=== PATIENT | male | born 1955 | race Caucasian/White ===

== ENCOUNTER 2018-04-07 14:39 | Emergency (ER) | payer BC ==
[2018-04-07] MEDS ORDERED: Sodium Chloride 0.9% 1,000 ML ONE (15:43)
[2018-04-07] MEDS ORDERED: Sodium Chloride 0.9% 1,000 ML IV ONE (15:43)
--- NOTE | 2018-04-07 15:46 | EDM.PDOC ---
ED HPI GENERAL MEDICAL PROBLEM - General Chief Complaint: Syncope Stated Complaint: PASSED OUT Time Seen by Provider: 04/07/18 14:45 Source of Information: Reports: Patient History Limitations: Reports: No Limitations - History of Present Illness INITIAL COMMENTS - FREE TEXT/NARRATIVE: 8-year-old male presents emergency room today after experiencing a syncopal episode in the bathroom while visiting at at his girlfriend's place and [place]. He's had similar episodes of this in the past. He did feel slightly lightheaded before going the bathroom this morning. He denies any fever chills nausea vomiting shortness of breath chest pain headaches or dizziness. He denies any vertigo. He's had prior carotid surgery on the right by Dr. Krueger. Leads this was done in 2013. He is also been diagnosed with peripheral artery disease in both of his legs. He does take a baby aspirin when necessary gout medication when necessary potassium replacement when necessary and niacin when necessary. He does not have a primary care provider but has seen someone in [place] in the past. He is a pack and a half day smoker for the last 40+ years. He denies elevated or low blood sugars. He feels the symptoms are very mild this time. He does not drink a lot of water but does drink caffeinated beverages such as Mountain Dew. Onset: Today, Sudden Onset Date: 04/07/18 Duration: Minutes: Location: Reports: Generalized Severity: Mild Improves with: Reports: Rest Worsens with: Reports: None Associated Symptoms: Reports: Syncope. 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: Aspirin - Related Data Allergies Allergy/AdvReac Type Severity Reaction Status Date / Time No Known Drug Allergies Allergy Unknown none Verified 04/07/18 15:27 Home Meds: Home Meds Hydrocodone/Acetaminophen [Hydrocodon-Acetaminophen 5-325] 1 each PO Q6HR PRN # 4 tablet 11/06/15 [Rx] Naproxen [IJP: Naproxen] 500 mg PO BID PRN #30 tab 11/06/15 [Rx] Past Medical History - Past Health History Medical/Surgical History: Denies Medical/Surgical History Cardiovascular History: Reports: Other (See Below) (PAD Carotid stenosis) Endocrine/Metabolic History: Reports: Other (See Below) (gout) Social & Family History - Tobacco Use Smoking Status *Q: Heavy Tobacco Smoker Tobacco Use Within Last Twelve Months: Cigarettes Years of Tobacco use: 43 Packs/Tins Daily: 1.5 - Living Situation & Occupation Occupation: Employed ED ROS GENERAL - Review of Systems Review Of Systems: See Below Constitutional: Reports: No Symptoms HEENT: Denies: Eye Pain, Nosebleed, Vertigo, Vision Change Respiratory: Denies: Shortness of Breath Cardiovascular: Reports: Lightheadedness, Syncope. Denies: Chest Pain, Blood Pressure Problem, Dyspnea on Exertion Endocrine: Reports: No Symptoms GI/Abdominal: Denies: Abdominal Pain, Bloody Stool, Diarrhea, Nausea, Vomiting : Reports: No Symptoms Musculoskeletal: Denies: Neck Pain, Shoulder Pain, Back Pain Skin: Reports: No Symptoms Neurological: Reports: Syncope. Denies: Confusion, Headache, Numbness, Paresthesia, Seizure, Trouble Speaking, Weakness, Change in Speech, Gait Disturbance Psychiatric: Reports: No Symptoms Hematologic/Lymphatic: Reports: No Symptoms Immunologic: Reports: No Symptoms - Physical Exam Exam: See Below Exam Limited By: No Limitations General Appearance: Alert, WD/WN, No Apparent Distress Eye Exam: Bilateral Eye: EOMI, PERRL Ears: Normal External Exam, Normal Canal Nose: Normal Inspection Throat/Mouth: Normal Inspection, Normal Lips, Normal Oropharynx, Normal Voice Head Exam: Atraumatic, Normocephalic Neck: Normal Inspection, Supple, Non-Tender, Full Range of Motion, Other (Well- healed incision from prior right carotid surgery). No: Carotid Bruit, Lymphadenopathy (L), Lymphadenopathy (R) Respiratory/Chest: No Respiratory Distress, Lungs Clear, No Accessory Muscle Use , Chest Non-Tender, Decreased Breath Sounds Cardiovascular: Regular Rate, Rhythm, No JVD, Other (Carotid pulses are 1+, radial pulses 2+, dorsal pedis and posterior tibialis pulses not palpable bilaterally. No abdominal bruit. No pulsations to palpation) GI/Abdominal: Normal Bowel Sounds, Soft, Non-Tender, No Abnormal Bruit Neuro Exam (Abbreviated): Alert, Oriented, CN II-XII Intact, Normal Cognition, No Motor/Sensory Deficits Back Exam: Normal Inspection Extremities: Normal Inspection, Normal Range of Motion, Slow Capillary Refill Psychiatric: Normal Affect, Normal Mood Skin Exam: Warm, Dry, Intact, Normal Color, No Rash EKG INTERPRETATION EKG Date: 04/07/18 Time: 15:20 Rhythm: NSR Rate (Beats/Min): 74 [place]: Normal P-Wave: Present QRS: Normal ST-T: Normal QT: Normal Comparison: NA - No Prior EKG EKG Interpretation Comments: Normal sinus rhythm Septal infarct age undetermined Course - Vital Signs Last Recorded V/S: Last Vital Signs Temp 98 F 04/07/18 15:14 Pulse 77 04/07/18 15:14 Resp 24 H 04/07/18 15:14 BP 128/78 04/07/18 15:14 Pulse Ox 94 L 04/07/18 15:14 - Orders/Labs/Meds Orders: Active Orders 24 hr Category Date Time Status CXR [Chest 2V] [CR] Stat Exams 04/07/18 16:11 Ordered Labs: Laboratory Tests 04/07/18 04/07/18 04/07/18 Range/Units 15:20 15:20 15:30 WBC 15.59 H (5.00-10.00) 10^3/uL RBC 5.44 (4.50-6.00) 10^6/uL Hgb 16.1 (13.0-17.0) g/dL Hct 46.5 (40.0-52.0) % MCV 85.5 (82.0-92.0) fL MCH 29.6 (27.0-31.0) pg MCHC 34.6 (32.0-36.0) g/dL RDW 13.7 (11.5-14.5) % Plt Count 266 (150-400) 10^3/uL MPV 10.2 (7.4-10.4) fL Immature Gran % (Auto) 0.3 (0.0-5.0) % Neut % (Auto) 81.4 H (50.0-70.0) % Lymph % (Auto) 12.3 L (20.0-40.0) % [place] % (Auto) 5.5 (2.0-8.0) % Eos % (Auto) 0.3 L (1.0-3.0) % Baso % (Auto) 0.2 (0.0-1.0) % Immature Gran # (Auto) 0.05 (0.00-0.50) 10^3/uL Neut # (Auto) 12.69 H (2.50-7.00) 10^3/uL Lymph # (Auto) 1.91 (1.00-4.00) 10^3/uL [place] # (Auto) 0.86 H (0.10-0.80) 10^3/uL Eos # (Auto) 0.05 L (0.10-0.30) 10^3/uL Baso # (Auto) 0.03 (0.00-0.10) 10^3/uL Sodium 138 (136-145) mmol/L Potassium 4.1 (3.3-5.3) mmol/L Chloride 104 (98-115) mmol/L Carbon Dioxide 22.3 (21.0-32.0) mmol/L Anion Gap 15.8 H (5-15) mmol/L BUN 10 (6-25) mg/dL Creatinine 0.85 (0.51-1.17) mg/dL Est Cr Clr Drug Dosing 83.40 mL/min Estimated GFR (MDRD) > 60 mL/min Glucose 100 mg/dL Calcium 8.2 L (8.7-10.3) mg/dL Troponin I < 0.04 (0.00-0.070) ng/mL Specimen Type Urinblad Urine Color Yellow (YELLOW) Urine Appearance Clear (CLEAR) Urine pH 5.5 (5.0-9.0) Ur Specific [place] <= 1.005 (1.005-1.030) Urine Protein Negative (NEGATIVE) mg/dL Urine Glucose (UA) Negative (NEGATIVE) mg/dL Urine Ketones Negative (NEGATIVE) mg/dL Urine Occult Blood Trace-intact H (NEGATIVE) Urine Nitrite Negative (NEGATIVE) Urine Bilirubin Negative (NEGATIVE) Urine Urobilinogen 0.2 (0.2-1.0) E.U./dL Ur Leukocyte Esterase Negative (NEGATIVE) Urine RBC Not seen /HPF Urine WBC 0-5 /HPF Ur Epithelial Cells Rare /LPF Urine Bacteria Not seen (NONE TO FEW) /HPF Meds: Medications Discontinued Medications Generic Name Dose Route Start Last Admin Trade Name Freq PRN Reason Stop Dose Admin Sodium Chloride Confirm 04/07/18 15:43 04/07/18 15:44 Normal Saline Administered 04/07/18 15:44 999 mls/hr Dose Administration 1,000 mls @ as directed .ROUTE .STK-MED ONE - Radiology Interpretation Free Text/Narrative:: Chest x-ray PA lateral Findings: The lungs are clear The cardiac silhouette is normal Impression: Normal lung x-ray indeterminate exam. Departure - Departure Time of Disposition: 17:45 Disposition: Home, Self-Care 01 Condition: Fair Clinical Impression: Neutrophilic leukocytosis Syncope Qualifiers: Syncope type: unspecified Qualified Code(s): R55 - Syncope and collapse - Discharge Information *PRESCRIPTION DRUG MONITORING PROGRAM REVIEWED*: Yes *COPY OF PRESCRIPTION DRUG MONITORING REPORT IN PATIENT ARIEL: Yes Instructions: Leukocytosis, Syncope, [id number] Referrals: PCP,Not In Area [Primary Care Provider] - Forms: ED Department Discharge - My Orders Last 24 Hours: My Active Orders 04/07/18 16:11 CXR [Chest 2V] [CR] Stat - Assessment/Plan Last 24 Hours: My Active Orders 04/07/18 16:11 CXR [Chest 2V] [CR] Stat Assessment:: Syncopal episode Neutrophilic leukocytosis Plan: 1. Recommended patient follow-up with a primary care provider. Patient states he has no desire for any follow-up as doesn't do any help any way. We did talk with them today about smoking sensation. He declined any help with regards to this as well. 2. I do have concerns that the syncopal episode may be related to some underlying coronary arteries disease he's had a right coronary artery surgery in the past. He's also been diagnosed with a peripheral artery disease. I feel he likely benefit to have further evaluation S with follow-up with this of primary care and probably carotid ultrasound. He has seen a primary care and [place] in the past and I've discussed this both with the patient and his girlfriend. He left on his own discretion today prior to given him discharge papers.
[2018-04-07 16:02] LABS: ANION GAP 15.8 mmol/L (5-15); CHLORIDE,CL 104 mmol/L (98-115); SODIUM,NA 138 mmol/L (136-145)
[2018-04-07 17:26] VITALS: BP 126/63
== END 2018-04-07 17:35 | disposition home or self-care (01) ==
LOC: KA.ED 14:39
DX: R55 Syncope and collapse (principal); D72.829 Elevated white blood cell count, unspecified; F17.210 Nicotine dependence, cigarettes, uncomplicated
CPT/HCPCS: 36415; 71046; 80048; 81001; 84484; 85025; 96360; 99284; J7030

== ENCOUNTER 2019-06-17 14:10 | Day surgery (SDC) | payer BC, MEDICAID, OTHER ==
[2019-06-17] MEDS: Sodium Chloride 0.9% 10 ML Syringe FLUSH PRN (15:03)
[2019-06-17] MEDS: Lactated Ringers 1,000 ML IV SCH (15:03)
--- NOTE | 2019-06-17 15:58 | PCM.PN ---
- General Info Date of Service: 06/17/19 - Review of Systems Systems Review Comment:: 63-year-old male referred by Dr. Israel for colonoscopy. This patient has not had previous colonoscopy but did recently learned that his brother has colon cancer. Patient denies any problems with bowel movements. He is medically stable to proceed today. His recent history and physical is reviewed and no significant changes are noted. I have discussed the proposed colonoscopy with the patient. Risks such as but not limited to bleeding and GI injury reviewed. He agrees to proceed. - Patient Data Vitals - Most Recent: Last Vital Signs Temp 98 F 06/17/19 14:35 Pulse 83 06/17/19 14:35 Resp 16 06/17/19 14:35 BP 181/113 H 06/17/19 14:35 Pulse Ox 93 L 06/17/19 14:35 Weight - Most Recent: 74.843 kg Med Orders - Current: Current Medications Lactated Ringer's (Ringers, Lactated) 1,000 mls @ 30 mls/hr IV ASDIRECTED BENJAMIN Last Admin: 06/17/19 15:03 Dose: 30 mls/hr Sodium Chloride (Saline Flush) 10 ml FLUSH Q8HR PRN PRN Reason: keep vein open Last Admin: 06/17/19 15:03 Dose: 10 ml Sepsis Event Note - Focused Exam Vital Signs: Vital Signs Temp Pulse Resp BP Pulse Ox 06/17/19 14:35 98 F 83 16 181/113 H 93 L Date Exam was Performed: 06/17/19 Time Exam was Performed: 15:56 - Problem List Review Problem List Initiated/Reviewed/Updated: Yes - My Orders Last 24 Hours: My Active Orders 06/16/19 16:30 Resuscitation Status Routine 06/17/19 14:15 Peripheral IV Care [RC] . DIRECTED Verify Patient Consent Obtain [RC] ASDIRECTED Vital Signs [RC] PER UNIT ROUTINE Lactated Ringers [Ringers, Lactated] 1,000 ml IV ASDIRECTED Sodium Chloride 0.9% [Saline Flush] 10 ml FLUSH Q8HR PRN Peripheral IV Insertion Adult [OM.PC] Routine 06/17/19 Breakfast Nothing Per Oral Diet [DIET] - Assessment Assessment:: High risk colon cancer screening History of colon cancer in brother - Plan Plan:: Colonoscopy
[2019-06-17] MEDS ORDERED: Midazolam 1 MG/ML 2 ML SDV ONE (16:03)
[2019-06-17] MEDS ORDERED: Propofol 200 MG/20 ML SDV ONE (16:03)
[2019-06-17] MEDS ORDERED: Esmolol 100 MG/10 ML SDV IV ONE (16:30)
--- NOTE | 2019-06-17 16:56 | PCM.OPNOTE ---
- General Post-Op/Procedure Note Date of Surgery/Procedure: 06/17/19 Operative Procedure(s): Colonoscopy with polypectomy Findings: Large Transverse colon and small hepatic flexure polyp Mild sigmoid diverticulosis Pre Op Diagnosis: Family history of colon cancer Post-Op Diagnosis: Colon polyps. Sigmoid diverticulosis Anesthesia Technique: MAC Primary Surgeon: Phillip Page Pathology: Colon polyps EBL in mLs: 0 Complications: None Condition: Good
--- NOTE | 2019-06-17 18:05 | OR ---
DATE OF SURGERY: 06/17/2019 SURGEON: Phillip Page MD PREOPERATIVE DIAGNOSIS: High-risk colon cancer screening with family history of colon cancer. POSTOPERATIVE DIAGNOSIS: Colon polyps and sigmoid diverticulosis. OPERATION PERFORMED: Colonoscopy with polypectomy. INDICATIONS FOR SURGERY: This 63-year-old male is seen today for his initial colonoscopy. He has a known family history of colon cancer in his brother. FINDINGS: In the mid transverse colon, the patient has a large semi- pedunculated polyp estimated at 12 mm in size. The wall of the polyp is smooth. There is also a good nearby 5 mm sessile polyp. At the hepatic flexure, another 5 mm sessile polyp was noted. The patient has mild degree of sigmoid diverticulosis which does not appear to be acutely inflamed or otherwise complicated. DESCRIPTION OF PROCEDURE: The patient was taken to the operating room. He was given intravenous sedation and with him in the left lateral decubitus position, digital rectal exam was performed showing no rectal masses. The Olympus colonoscope was inserted into the rectum. Retroflexed examination of the rectal canal was performed. The scope was then carefully advanced under direct visualization through the internal comes over to the transverse colon. The above-described large polyp was identified here. It is removed with a cautery snare. It was too large to suction through the end of the scope, so it was held on the end of the scope with suction and the scope was removed. Withdrawing the polyp, which was then retrieved, the scope was then reinserted. The polypectomy site and other small nearby 5 mm polyp is removed with a cautery snare. The scope was then advanced to the cecum. This did require some hand pressure, but was able to be safely accomplished with careful manipulation. Cecal identity is confirmed by noting the normal internal cecal anatomy including the appendiceal orifice and ileocecal valve. The light was also noted to transilluminate the abdominal wall in the right lower quadrant. After examining the cecum, the scope was slowly withdrawn back to the hepatic flexure were is another small polyp was identified. This was removed with a cautery snare and retrieved into a polyp trap. The scope was then further withdrawn and the site of the removal of the large polyp larger polyp was again re-examined. The site appeared to be without complication. The scope is continued to be withdrawn re-examining the colonic segments. Once the entire colon and rectum had been fully examined and with no sign of any complication. Scope was removed and the patient was taken from the operating room in satisfactory condition. ESTIMATED BLOOD LOSS: Zero. COMPLICATIONS: None. PROGNOSIS: Good. /[id number]/MODL
[2019-06-17 18:09] VITALS: BP 184/112; PULSE 59
== END 2019-06-17 17:49 | disposition home or self-care (01) ==
LOC: KA.SDS 14:10
PROVIDERS: ATTEND Surgery
DX: Z12.11 Encounter for screening for malignant neoplasm of colon (principal); D12.3 Benign neoplasm of transverse colon; K57.30 Diverticulosis of large intestine without perforation or abscess without bleeding; Z80.0 Family history of malignant neoplasm of digestive organs; Z88.5 Allergy status to narcotic agent; Z88.6 Allergy status to analgesic agent; Z79.82 Long term (current) use of aspirin; Z79.899 Other long term (current) drug therapy
CPT/HCPCS: J2250; J3490; J7120

== ENCOUNTER 2019-06-17 17:50 | Emergency (ER) | payer MEDICAID ==
[2019-06-17 18:02] VITALS: PULSE 61
[2019-06-17 18:40] VITALS: BP 191/89
--- NOTE | 2019-06-17 19:05 | EDM.PDOC ---
ED HPI GENERAL MEDICAL PROBLEM - General Chief Complaint: General Stated Complaint: HTN Time Seen by Provider: 06/17/19 18:52 Source of Information: Reports: Patient History Limitations: Reports: No Limitations - History of Present Illness INITIAL COMMENTS - FREE TEXT/NARRATIVE: Patient is a 63-year-old gentleman who presents to the emergency department following colonoscopy earlier today. Patient was found to be hypertensive. Prior to procedure, as well as during procedure. Per SUPPLIES PACKER, patient required esmolol and metoprolol to lower pressure. However, status post procedure, pressure remained elevated. Patient was referred to emergency department for evaluation. Upon presentation to emergency department patient's blood pressure was 174 over 96. Patient denies chest pain, shortness of breath, headache, blurry vision, nausea or vomiting. Patient was abusive toward staff, but finally became manageable. Patient declined further workup. Discussed with patient consideration of blood pressure medicine. He wants to see PCP. Patient denies Onset: Today Improves with: Reports: None Worsens with: Reports: None Associated Symptoms: Reports: No Other Symptoms. Denies: Chest Pain, Diaphoresis, Nausea/Vomiting - Related Data Allergies Allergy/AdvReac Type Severity Reaction Status Date / Time No Known Drug Allergies Allergy Unknown none Verified 06/17/19 14:50 Home Meds: Home Meds Aspirin 324 mg PO DAILY 06/11/19 [History] Indomethacin 50 mg PO BIDMEALS 06/11/19 [History] Varenicline Tartrate [Chantix] 1 tab PO BID 06/11/19 [History] atorvaSTATin Calcium [Atorvastatin Calcium] 80 mg PO BEDTIME 06/11/19 [History] Past Medical History - Past Health History Medical/Surgical History: Denies Medical/Surgical History HEENT History: Reports: Impaired Vision Cardiovascular History: Reports: PVD, SOB on Exertion Respiratory History: Reports: Other (See Below) Other Respiratory History: smoker for 44 years Musculoskeletal History: Reports: Fracture, Gout Neurological History: Reports: CVA, Speech Problems Psychiatric History: Reports: Addiction Endocrine/Metabolic History: Reports: Other (See Below) - Infectious Disease History Infectious Disease History: Reports: Mumps - Past Surgical History Cardiovascular Surgical History: Reports: Carotid Endarterectomy Social & Family History - Family History Family Medical History: Noncontributory - Tobacco Use Smoking Status *Q: Current Every Day Smoker Years of Tobacco use: 40 Packs/Tins Daily: 1 - Caffeine Use Caffeine Use: Reports: Soda - Recreational Drug Use Recreational Drug Use: Yes Recreational Drug Type: Reports: Marijuana/Hashish Recreational Drug Use Frequency: Daily - Living Situation & Occupation Occupation: Employed ED ROS GENERAL - Review of Systems Review Of Systems: Comprehensive ROS is negative, except as noted in HPI. Constitutional: Reports: No Symptoms HEENT: Reports: No Symptoms Respiratory: Reports: No Symptoms Cardiovascular: Reports: No Symptoms Endocrine: Reports: No Symptoms GI/Abdominal: Reports: No Symptoms : Reports: No Symptoms Musculoskeletal: Reports: No Symptoms Skin: Reports: No Symptoms Neurological: Reports: No Symptoms Psychiatric: Reports: No Symptoms Hematologic/Lymphatic: Reports: No Symptoms Immunologic: Reports: No Symptoms ED EXAM, GENERAL - Physical Exam Exam: See Below Exam Limited By: No Limitations General Appearance: Alert, WD/WN, No Apparent Distress Eye Exam: Bilateral Eye: Normal Inspection Nose: Normal Inspection, Normal Mucosa, No Blood Throat/Mouth: Normal Inspection, Normal Oropharynx, No Airway Compromise Head: Atraumatic, Normocephalic Neck: Normal Inspection, Supple, Non-Tender Respiratory/Chest: No Respiratory Distress, Lungs Clear, Normal Breath Sounds, No Accessory Muscle Use, Chest Non-Tender Cardiovascular: Regular Rate, Rhythm, No Murmur, No Rub GI/Abdominal: Normal Bowel Sounds, Soft, Non-Tender Back Exam: Normal Inspection. No: CVA Tenderness (L), CVA Tenderness (R) Extremities: Normal Inspection, No Pedal Edema Neurological: Alert, Oriented, CN II-XII Intact, Normal Cognition Psychiatric: Normal Affect, Normal Mood Skin Exam: Warm, Dry, Intact, Normal Color, No Rash Lymphatic: No Adenopathy Course - Vital Signs Last Recorded V/S: Last Vital Signs Temp 96.6 F 06/17/19 17:59 Pulse 61 06/17/19 17:59 Resp 18 06/17/19 17:59 BP 191/89 H 06/17/19 18:37 Pulse Ox 96 06/17/19 17:59 Departure - Departure Time of Disposition: 18:54 Disposition: Home, Self-Care 01 Condition: Good Clinical Impression: Hypertension screening - Discharge Information Instructions: Hypertension, [id number] Referrals: PCP,None [Primary Care Provider] - Forms: ED Department Discharge Additional Instructions: Follow-up with a primary care provider tomorrow for consideration of blood pressure medicine. Return to emergency department sooner if symptoms continue or worsen. Sepsis Event Note - Evaluation Sepsis Screening Result: No Definite Risk - Focused Exam Vital Signs: Vital Signs Temp Pulse Resp BP Pulse Ox 06/17/19 18:37 191/89 H 06/17/19 18:25 193/92 H 06/17/19 17:59 96.6 F 61 18 174/96 H 96 Date Exam was Performed: 06/17/19 Time Exam was Performed: 19:08 - Assessment/Plan Assessment:: hypertension evaluation Plan: follow-up withP
== END 2019-06-17 19:30 | disposition home or self-care (01) ==
LOC: KA.ED 17:50
DX: I10 Essential (primary) hypertension (principal); M10.9 Gout, unspecified; Z86.73 Personal history of transient ischemic attack (TIA), and cerebral infarction without residual deficits; F17.210 Nicotine dependence, cigarettes, uncomplicated; Z79.82 Long term (current) use of aspirin; Z79.899 Other long term (current) drug therapy
CPT/HCPCS: 99283

== ENCOUNTER 2024-02-02 15:59 | Emergency (ER) | payer SELFPAY ==
[~2024-02-02 15:59] MED LIST: Sodium Chloride 0.9% 1,000 ML ONE; Tenecteplase 50 MG Kit ONE
[2024-02-02 17:30] LABS: PROTHROMBIN TIME 10.6 SEC (9.3-12.2); PTT,PARTIAL THROMBOPLSTIN TIME 25.9 SEC (23.3-34.9)
[2024-02-02 18:24] LABS: ALANINE AMINOTRANSFERASE,ALT 22 U/L (14-63); ALBUMIN 3.17 g/dL (3.40-5.00); ALKALINE PHOSPHATASE 79 U/L (46-116); ANION GAP 13.5 mmol/L (5-15); ASPARTATE AMNIOTRANSFERASE,AST 16 U/L (15-37); BASOPHILS ABSOLUTE AUTO 0.02 10^3/uL (0.00-0.10); BASOPHILS PERCENT AUTO 0.2 % (0.0-1.0); BILIRUBIN TOTAL 0.2 mg/dL (0.2-1.0); BLOOD UREA NITROGEN,BUN 15 mg/dL (7-18); CALCIUM 8.7 mg/dL (8.7-10.3); CARBON DIOXIDE,CO2 24.5 mmol/L (21.0-32.0); CHLORIDE,CL 105 mmol/L (98-107); CREATININE 1.02 mg/dL (0.51-1.17); EOSINOPHILS ABSOLUTE AUTO 0.09 10^3/uL (0.10-0.30); EOSINOPHILS PERCENT AUTO 0.7 % (1.0-3.0); ESTIMATED GFR 81 mL/min (>=60); GLUCOSE RANDOM 92 mg/dL (70-140); HEMATOCRIT 43.8 % (40.0-52.0); HEMOGLOBIN 14.6 g/dL (13.0-17.0); IMMATURE GRAN ABSOLUTE AUTO 0.04 10^3/uL (0.00-0.50); IMMATURE GRAN PERCENT AUTO 0.3 % (0.0-5.0); LYMPHOCYTES ABSOLUTE AUTO 2.47 10^3/uL (1.00-4.00); LYMPHOCYTES PERCENT AUTO 18.9 % (20.0-40.0); MEAN CORPUSCULAR HGB CONC 33.3 g/dL (32.0-36.0); MEAN CORPUSCULAR VOLUME 86.9 fL (82.0-92.0); MEAN PLATELET VOLUME 9.5 fL (7.4-10.4); MONOCYTES ABSOLUTE AUTO 0.85 10^3/uL (0.10-0.80); MONOCYTES PERCENT AUTO 6.5 % (2.0-8.0); NEUTROPHILS ABSOLUTE AUTO 9.61 10^3/uL (2.50-7.00); NEUTROPHILS PERCENT AUTO 73.4 % (50.0-70.0); PLATELET COUNT,PLT 320 10^3/uL (150-400); PROTEIN TOTAL,TP 6.5 g/dL (6.4-8.2); RED BLOOD CELL COUNT 5.04 10^6/uL (4.50-6.00); RED CELL DISTRIBUTION WIDTH 13.3 % (11.5-14.5); SODIUM,NA 139 mmol/L (136-145); WHITE BLOOD CELL COUNT,WBC 13.08 10^3/uL (5.00-10.00)
[2024-02-02 19:23] VITALS: PULSE 60
[2024-02-02 19:25] VITALS: BP 143/63
== END 2024-02-02 17:03 ==
LOC: KA.ED 15:59
DX: I63.9 Cerebral infarction, unspecified (principal); Z79.899 Other long term (current) drug therapy
CPT/HCPCS: 70450; 80053; 85025; 85610; 85730; 99285; Q3014